=== PATIENT | female | born 1960 | race Caucasian/White ===

== ENCOUNTER 2019-03-20 00:25 | Emergency (ER) | payer MEDICAID ==
[~2019-03-20] VITALS: Ht 160 cm; Wt 68.1 kg
[2019-03-20 00:31] VITALS: BP 128/70
[2019-03-20] MEDS ORDERED: KETO15CR2 TOP (00:47)
== END 2019-03-20 00:54 | disposition home or self-care (01) ==
LOC: ER 00:27
DX: B35.9 Dermatophytosis, unspecified (principal); Z79.899 Other long term (current) drug therapy
CPT/HCPCS: 99283

== ENCOUNTER 2019-05-19 20:06 | Emergency (ER) | payer MEDICAID ==
[~2019-05-19] VITALS: Ht 160 cm; Wt 75.0 kg
[~2019-05-19 20:06] MED LIST: KETO15CR2 TOP
[2019-05-19] MEDS ORDERED: LIDOcaine 1% w/EPI 1:200,000 injection 10mL vial IM ONE (20:45)
[2019-05-19] MEDS ORDERED: LIDOcaine 1% W/epiNEPHrine 1:100,000 20ml vial IJ ONE (20:55)
[2019-05-19] MEDS ORDERED: CYCL-1 PO (21:33)
[2019-05-19 21:46] VITALS: BP 114/80
== END 2019-05-19 21:48 | disposition home or self-care (01) ==
LOC: ER 20:06
DX: S01.01XA Laceration without foreign body of scalp, initial encounter (principal); Z79.899 Other long term (current) drug therapy; W18.2XXA Fall in (into) shower or empty bathtub, initial encounter; Y93.E1 Activity, personal bathing and showering; Y92.091 Bathroom in other non-institutional residence as the place of occurrence of the external cause; Y99.9 Unspecified external cause status
CPT/HCPCS: 12001; 99283

== ENCOUNTER 2019-05-26 00:27 | Emergency (ER) | payer MEDICAID ==
[~2019-05-26] VITALS: Ht 160 cm; Wt 75.0 kg
[~2019-05-26 00:27] MED LIST changes: +CYCL-1 PO
[2019-05-26 00:59] VITALS: BP 119/80
--- NOTE | 2019-05-26 01:02 | NUR ---
3 tir removed from left posterior head in prescence of dr hernandez
== END 2019-05-26 01:33 | disposition home or self-care (01) ==
LOC: ER 00:28
DX: S01.01XD Laceration without foreign body of scalp, subsequent encounter (principal); Z79.899 Other long term (current) drug therapy; W18.2XXD Fall in (into) shower or empty bathtub, subsequent encounter
CPT/HCPCS: 99281

== ENCOUNTER 2019-07-18 17:40 | Emergency (ER) | payer MEDICAID ==
[~2019-07-18] VITALS: Ht 160 cm; Wt 77.0 kg
[2019-07-18 17:46] VITALS: BP 150/78
[2019-07-18] MEDS ORDERED: ESOM40CA PO (18:42)
[2019-07-18] MEDS ORDERED: AZIT250T83 PO (18:42)
[2019-07-18] MEDS ORDERED: PRED20TA PO (18:42)
[2019-07-18] MEDS ORDERED: ALBU8.5H8 INH (18:42)
== END 2019-07-18 19:07 | disposition home or self-care (01) ==
LOC: ER 17:41
DX: J40 Bronchitis, not specified as acute or chronic (principal); Z79.899 Other long term (current) drug therapy
CPT/HCPCS: 99283

== ENCOUNTER 2020-09-02 23:03 | Emergency (ER) | payer MEDICAID ==
[~2020-09-02] VITALS: Ht 160 cm; Wt 68.2 kg
[~2020-09-02 23:03] MED LIST changes: +ALBU8.5H8 INH
--- NOTE | 2020-09-02 23:36 | NUR ---
Pt has hypothyroid, states she has not been able to get out of bed and has been weak and fatigued. Pt drove here tonight (she lives in [place] and does not have a phone). Came tonight hopeful of a covid test. Has been taking all of her perscribed meds as scheduled. Has headache all day, having sore throat, states her lymphnodes in neck are swollen.
--- NOTE | 2020-09-03 00:26 | NUR ---
AWAITING COVID SWAB RESULT
[2020-09-03 00:58] VITALS: BP 116/94
== END 2020-09-03 02:01 | disposition home or self-care (01) ==
LOC: ER 23:04
DX: J02.9 Acute pharyngitis, unspecified (principal); R05 Cough; R06.02 Shortness of breath; R53.83 Other fatigue; Z20.822 Contact with and (suspected) exposure to COVID-19; Z79.2 Long term (current) use of antibiotics; Z79.899 Other long term (current) drug therapy
CPT/HCPCS: 71045; 87635; 99284; C9803

== ENCOUNTER 2021-05-22 23:36 | Emergency (ER) | payer MEDICAID ==
[~2021-05-22] VITALS: Ht 160 cm; Wt 67.3 kg
[~2021-05-22 23:36] MED LIST changes: +ALBU8.5H17 INH; -ALBU8.5H8 INH
[2021-05-23 00:02] VITALS: BP 110/61
== END 2021-05-23 05:30 | disposition left against medical advice (07) ==
LOC: ER 23:38
DX: M79.644 Pain in right finger(s) (principal); Z53.21 Procedure and treatment not carried out due to patient leaving prior to being seen by health care provider

== ENCOUNTER 2024-06-12 00:14 | Emergency (ER) | payer MEDICAID ==
[~2024-06-12] VITALS: Ht 160 cm; Wt 69.3 kg
[2024-06-12 01:30] LABS: BASOPHILS # (AUTO) 0.1 X10'3 (0-0.2); BASOPHILS % (AUTO) 0.7 % (0-1); EOSINOPHILS # (AUTO) 0.1 X10'3 (0-0.9); EOSINOPHILS % (AUTO) 1.4 % (0-6); HEMATOCRIT 40.8 % (35.0-45.0); LYMPHOCYTES % (AUTO) 25.3 % (21-51); MEAN CORPUSCULAR HEMOGLOBIN 29.8 PG (27.0-31.0); MEAN CORPUSCULAR HGB CONC 34.3 g/dL (33.0-36.5); MEAN CORPUSCULAR VOLUME 86.8 FL (78-98); MEAN PLATELET VOLUME 7.3 FL (7.4-10.4); MONOCYTES # (AUTO) 0.5 X10'3 (0-0.9); MONOCYTES % (AUTO) 6.9 % (2-12); NEUTROPHILS # (AUTO) 5.2 X10'3 (1.8-7.7); NEUTROPHILS % (AUTO) 65.7 % (42-75); PLATELET COUNT 311 X10'3 (140-440); RED CELL DISTRIBUTION WIDTH 13.1 % (11.5-14.5); WHITE BLOOD COUNT 7.9 X10'3 (4.5-11.0)
[2024-06-12 02:12] LABS: ALANINE AMINOTRANSFERASE 33 U/L (12-78); ALBUMIN 3.4 G/DL (3.4-5.0); ALBUMIN/GLOBULIN RATIO 0.9 (1.1-1.5); ALKALINE PHOSPHATASE 94 IU/L (46-116); ANION GAP 8 (8-16); ASPARTATE AMINO TRANSFERASE 20 U/L (10-37); BILIRUBIN,TOTAL 0.3 MG/DL (0.1-1.0); BLOOD UREA NITROGEN 18 MG/DL (7-18); BUN/CREATININE RATIO 18.9 (10.0-20.0); CALCIUM 8.7 MG/DL (8.5-10.1); CHLORIDE 102 MMOL/L (99-107); CREATININE 0.95 MG/DL (0.40-0.90); GLUCOSE 104 MG/DL (70-104); PRO BRAIN NATRIURETIC PEPTIDE < 30 PG/ML (0-125); SODIUM 135 MMOL/L (135-145); TOTAL CARBON DIOXIDE 25.3 MMOL/L (24-32); TOTAL PROTEIN 7.3 G/DL (6.4-8.2); eCRCL 49 ML/MIN; eGFR 59 ML/MIN
[2024-06-12] MEDS ORDERED: LORA-269 PO (02:54)
[2024-06-12 03:22] VITALS: BP 114/62; PULSE 80; RESP 14; TEMP 97.9; O2SAT 98
== END 2024-06-12 03:26 | disposition home or self-care (01) ==
LOC: ER 00:15
DX: F41.9 Anxiety disorder, unspecified (principal); R53.83 Other fatigue; R42 Dizziness and giddiness; Z79.899 Other long term (current) drug therapy
CPT/HCPCS: 36415; 71045; 80053; 83880; 84484; 85025; 93005; 99285